=== PATIENT | male | born 1985 | race Caucasian/White ===

== ENCOUNTER → 2016-11-02 | Outpatient (CLI) | payer OTHER ==
--- NOTE | 2016-11-03 06:28 | CONS ---
DATE OF CONSULTATION: Primary care physician is Dr. Henley. Referring physicians are the physicians at [facility]. This 31-year-old served in [employer] between 2008 and 2009. He has history of depression and PTSD in addition to irritable bowel syndrome. He reported symptoms of loud snoring and waking up gasping for air on multiple occasions throughout the night and has been told to stop breathing by his . He reports he wakes up tired and fatigued during the day. He goes to bed between 11:00 p.m. and 2:00 a.m. and he wakes up at 6:00 to 7:00 a.m. in the morning. He averages around 6 hours of sleep. He is tired and sleepy during the day and he is being considered for obstructive sleep apnea. No sleepwalking. No sleeptalking. No waking up at agitated. No nightmares at this point. No active flashbacks. PAST MEDICAL HISTORY: Depression, PTSD, irritable bowel syndrome. PAST SURGICAL HISTORY: ( ) removal. ALLERGIES: TETRACYCLINE. Outpatient medication includes the Viberzi 100 mg twice a day, vitamin D. The patient was on Celexa 20 mg p.o. daily and Trazodone at bedtime. FAMILY HISTORY: His father obstructive sleep apnea. SOCIAL HISTORY: Nonsmoker. Drinks socially. No history of IV drugs. He is a . He is currently disabled. REVIEW OF SYSTEMS: Twelve-point review of systems was done and the positive findings were mentioned above in the history of present illness. BP is 127/64, pulse is 63, respirations 16, temperature is 97.9, saturation 95% on room air. Weight is 216, height is 5 foot 9. Neck size 16-1/2 inches. BMI is 31.8. GENERAL APPEARANCE: Calm, comfortable. HEENT: Crowding of posterior pharynx. There is no goiter, neck masses. Mallampati class III. LUNGS: Clear to auscultation. HEART: Sounds are regular rate and rhythm. Normal S1, S2. No S3. No S4. No murmurs. ABDOMEN: Soft, nontender. No organomegaly. EXTREMITIES: No edema. No cyanosis or clubbing. IMPRESSION: 1. Obstructive sleep apnea suspected clinically under investigation. 2. Depression. 3. Posttraumatic stress disorder. 4. Irritable bowel syndrome. PLAN: Proceed with a screening polysomnogram and further recommendations are to follow based on the results.
== END ==
LOC: SLEEP 16:07
PROVIDERS: ATTEND Internal Medicine Critical Care Medicine
DX: G47.33 Obstructive sleep apnea (adult) (pediatric) (principal); F32.9 Major depressive disorder, single episode, unspecified; K58.9 Irritable bowel syndrome, unspecified; F43.10 Post-traumatic stress disorder, unspecified; Z88.1 Allergy status to other antibiotic agents; Z79.899 Other long term (current) drug therapy
CPT/HCPCS: 99211

== ENCOUNTER 2017-10-19 15:24 | Emergency (ER) | payer MEDICARE, OTHER ==
[2017-10-19 15:31] VITALS: RESP 18; TEMP 99.8
[2017-10-19 16:13] LABS: Basophils % (A) 0 %; Eosinophils # (A) 0.1 k/uL (0-0.7); Eosinophils % (A) 3 %; HCT 51.1 % (39.0-53.0); HGB 17.3 gm/dL (13.0-17.5); Lymphocytes # (A) 0.9 k/uL (1.0-4.8); Lymphocytes % (A) 20 %; MCH 27.9 pg (25.0-35.0); MCHC 33.9 g/dL (31.0-37.0); MCV 82.4 fL (80.0-100.0); Mean Platelet Volume 7.1; Monocytes # (A) 0.3 k/uL (0-1.0); Monocytes % (A) 7 %; Neutrophils % (A) 68 %; Platelet Count 241 k/uL (150-450); RBC 6.19 m/uL (4.30-5.90); RDW 12.6 % (11.5-15.5); WBC 4.5 k/uL (3.8-10.6)
[2017-10-19 16:32] LABS: ALT 43 U/L (21-72); AST 31 U/L (17-59); Albumin 4.8 g/dL (3.5-5.0); Alkaline Phosphatase 109 U/L (38-126); Amylase 51 U/L (30-110); Anion Gap 16 mmol/L; Blood Urea Nitrogen 15 mg/dL (9-20); Calcium 9.8 mg/dL (8.4-10.2); Carbon Dioxide 24 mmol/L (22-30); Chloride 103 mmol/L (98-107); Glucose 86 mg/dL (74-99); Lipase 87 U/L (23-300); Potassium 4.2 mmol/L (3.5-5.1); Sodium 143 mmol/L (137-145); Total Bilirubin 0.9 mg/dL (0.2-1.3); Total Protein 7.4 g/dL (6.3-8.2)
[2017-10-19] MEDS ORDERED: SODIUM CHLORIDE 0.9% 1,000 ML IV STA ×2 (18:10)
[2017-10-19] MEDS ORDERED: ONDANSETRON ODT 4 MG TAB PO STA (18:10)
--- NOTE | 2017-10-19 18:12 | ED ---
General Adult HPI - General Chief complaint: Nausea/Vomiting/Diarrhea Stated complaint: Vomiting, unable to urinate Time Seen by Provider: 10/19/17 18:01 Source: patient, RN notes reviewed Mode of arrival: ambulatory Limitations: no limitations - History of Present Illness Initial comments: Patient 32-year-old male presented to the emergency room today with a chief complaint of diarrhea and abdominal pain over the last 2-3 days. Patient states that his had very loose stools approximately 6-7 episodes per day. He denies any sign of blood. Patient does admit to history of IBS but states this does not feel like that to him. He doesn't that he's had some pressure in the abdomen greater on the left side. Patient does admit that he's had decreased urination but he admits he has not been eating or drinking because any time he does feels nauseated. Patient denies any other questions or symptoms. Patient denies any recent fever, chills, shortness of breath, chest pain, back pain, numbness or tingling, dysuria or hematuria, constipation, headaches or visual changes, or any other complaints. - Related Data Previous Rx's Medication Instructions Recorded Dicyclomine [Bentyl] 20 mg PO QID #20 tablet 10/19/17 Ondansetron Odt [Zofran ODT] 4 mg PO Q8HR PRN #20 tab 10/19/17 Allergies Allergy/AdvReac Type Severity Reaction Status Date / Time tetracycline Allergy Rash/Hives Verified 10/19/17 15:31 Review of Systems ROS Statement: Those systems with pertinent positive or pertinent negative responses have been documented in the HPI. ROS Other: All systems not noted in ROS Statement are negative. Past Medical History Additional Past Medical History / Comment(s): alopecia, narrowed bladder neck, IBS History of Any Multi-Drug Resistant Organisms: None Reported Additional Past Surgical History / Comment(s): wisdom teeth Past Psychological History: PTSD Smoking Status: Never smoker Past Alcohol Use History: Occasional Past Drug Use History: None Reported General Exam - General Exam Comments Initial Comments: General: The patient is awake and alert, in no distress, and does not appear acutely ill. Eye: Pupils are equal, round and reactive to light, extra-ocular movements are intact. No nystagmus. There is normal conjunctiva bilaterally. No signs of icterus. Ears, nose, mouth and throat: There are moist mucous membranes and no oral lesions. Neck: The neck is supple, there is no tenderness or JVD. Cardiovascular: There is a regular rate and rhythm. No murmur, rub or gallop is appreciated. Respiratory: Lungs are clear to auscultation, respirations are non-labored, breath sounds are equal. No wheezes, stridor, rales, or rhonchi. Gastrointestinal: Abdomen soft on palpation. There is mild tenderness in the left lower quadrant. No rebound tenderness. No guarding. No CVA tenderness. Musculoskeletal: Normal ROM, no tenderness. Strength 5/5. Sensation intact. Pulses equal bilaterally 2+. Neurological: A&O x 3. CN II-XII intact, There are no obvious motor or sensory deficits. Coordination appears grossly intact. Speech is normal. Skin: Skin is warm and dry and no rashes or lesions are noted. Psychiatric: Cooperative, appropriate mood & affect, normal judgment. Limitations: no limitations Course Vital Signs 10/19/17 10/19/17 15:26 19:38 Temperature 99.8 F H Pulse Rate 77 80 Respiratory 18 18 Rate Blood Pressure 141/81 140/78 O2 Sat by Pulse 98 99 Oximetry Medical Decision Making - Medical Decision Making Patient reexamined at this time shows no signs of distress. Patient labs been reviewed are unremarkable. Patient given 2 L of fluids is feeling better here in emergency room. Patient has had diarrhea over the last 2 days. His abdomen soft on palpation. X-ray unremarkable. Patient will be treated with Bentyl for his symptoms. He is advised follow-up family physician over the next 2 days return if symptoms increase worsen. Patient states understanding and is in agreement with the plan. - Lab Data Result diagrams: 10/19/17 16:00 10/19/17 16:00 Lab Results 10/19/17 10/19/17 10/19/17 Range/Units 16:00 16:00 18:34 WBC 4.5 (3.8-10.6) k/uL RBC 6.19 H (4.30-5.90) m/uL Hgb 17.3 (13.0-17.5) gm/dL Hct 51.1 (39.0-53.0) % MCV 82.4 (80.0-100.0) fL MCH 27.9 (25.0-35.0) pg MCHC 33.9 (31.0-37.0) g/dL RDW 12.6 (11.5-15.5) % Plt Count 241 (150-450) k/uL Neutrophils % 68 % Lymphocytes % 20 % Monocytes % 7 % Eosinophils % 3 % Basophils % 0 % Neutrophils # 3.0 (1.3-7.7) k/uL Lymphocytes # 0.9 L (1.0-4.8) k/uL Monocytes # 0.3 (0-1.0) k/uL Eosinophils # 0.1 (0-0.7) k/uL Basophils # 0.0 (0-0.2) k/uL Sodium 143 (137-145) mmol/L Potassium 4.2 (3.5-5.1) mmol/L Chloride 103 (98-107) mmol/L Carbon Dioxide 24 (22-30) mmol/L Anion Gap 16 mmol/L BUN 15 (9-20) mg/dL Creatinine 0.80 (0.66-1.25) mg/dL Est GFR (CKD-EPI)AfAm >90 (>60 ml/min/1.73 sqM) Est GFR (CKD-EPI)NonAf >90 (>60 ml/min/1.73 sqM) Glucose 86 (74-99) mg/dL Calcium 9.8 (8.4-10.2) mg/dL Total Bilirubin 0.9 (0.2-1.3) mg/dL AST 31 (17-59) U/L ALT 43 (21-72) U/L Alkaline Phosphatase 109 (38-126) U/L Total Protein 7.4 (6.3-8.2) g/dL Albumin 4.8 (3.5-5.0) g/dL Amylase 51 (30-110) U/L Lipase 87 (23-300) U/L Urine Color Yellow Urine Appearance Clear (Clear) Urine pH 5.5 (5.0-8.0) Ur Specific [place] 1.025 (1.001-1.035) Urine Protein Trace H (Negative) Urine Glucose (UA) Negative (Negative) Urine Ketones 1+ H (Negative) Urine Blood Negative (Negative) Urine Nitrite Negative (Negative) Urine Bilirubin Negative (Negative) Urine Urobilinogen <2.0 (<2.0) mg/dL Ur Leukocyte Esterase Negative (Negative) Disposition Clinical Impression: Nausea, vomiting and diarrhea Disposition: HOME SELF-CARE Condition: Good Instructions: Acute Nausea and Vomiting (ED), Acute Diarrhea (ED) Additional Instructions: Please use medication as discussed. Please follow-up with family doctor in the next 2 days. Please return to emergency room if the symptoms increase or worsen or for any other concerns. Prescriptions: Dicyclomine [Bentyl] 20 mg PO QID #20 tablet Ondansetron Odt [Zofran ODT] 4 mg PO Q8HR PRN #20 tab PRN Reason: Nausea Is patient prescribed a controlled substance at d/c from ED?: No Referrals: Monroe Henley III, MD [Primary Care Provider] - 1-2 days Time of Disposition: 20:21
[2017-10-19 18:53] LABS: Appearance,Urine Clear (Clear); Bilirubin,Urine Negative (Negative); Blood,Urine Negative (Negative); Color,Urine Yellow; Glucose,Urine (UA) Negative (Negative); Ketones,Urine 1+ (Negative); Leukocyte Esterase,Urine Negative (Negative); Nitrite,Urine Negative (Negative); PH, Urine 5.5 (5.0-8.0); Protein,Urine Trace (Negative); Specific Gravity,Urine 1.025 (1.001-1.035); Urobilinogen,Urine <2.0 mg/dL (<2.0)
--- NOTE | 2017-10-19 19:33 | XR ---
EXAMINATION TYPE: XR KUB 2V DATE OF EXAM: 10/19/2017 COMPARISON: NONE HISTORY: Pain TECHNIQUE: 2 upright views FINDINGS: The bowel gas pattern is normal. No pneumatosis or pneumoperitoneum. The bones and joints a nd soft tissues visualized lung bases are unremarkable. IMPRESSION: No acute process.
[2017-10-19 19:40] VITALS: BP 140/78; PULSE 80
== END 2017-10-19 20:29 | disposition home or self-care (01) ==
LOC: EC 15:24
DX: R11.2 Nausea with vomiting, unspecified (principal); R19.7 Diarrhea, unspecified; R10.9 Unspecified abdominal pain; Z87.19 Personal history of other diseases of the digestive system; Z88.1 Allergy status to other antibiotic agents
CPT/HCPCS: 36415; 51798; 74018; 80053; 81003; 82150; 83690; 85025; 96360; 96361; 99284

== ENCOUNTER 2018-09-24 14:37 | Emergency (ER) | payer MEDICARE, OTHER ==
[2018-09-24 14:47] VITALS: BP 137/89; PULSE 73; RESP 18; TEMP 98.3
[2018-09-24] MEDS ORDERED: PROPARACAINE 0.5% OPHTH DROPS 15 ML BTL LEFT EYE STA (14:50)
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
== END 2018-09-24 15:17 | disposition home or self-care (01) ==
LOC: EC 14:37
DX: S05.02XA Injury of conjunctiva and corneal abrasion without foreign body, left eye, initial encounter (principal); Z88.1 Allergy status to other antibiotic agents
CPT/HCPCS: 99283

== ENCOUNTER 2020-08-29 15:16 | Emergency (ER) | payer MEDICARE, OTHER ==
[2020-08-29 15:20] VITALS: BP 140/97; PULSE 68; RESP 20; TEMP 97.9
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
[2020-08-29] MEDS ORDERED: KETOROLAC 15 MG/ML 1 ML VIAL IM STA (16:10)
== END 2020-08-29 16:44 | disposition home or self-care (01) ==
LOC: EC 15:16
DX: S43.402A Unspecified sprain of left shoulder joint, initial encounter (principal); E78.5 Hyperlipidemia, unspecified; F12.90 Cannabis use, unspecified, uncomplicated; V89.2XXA Person injured in unspecified motor-vehicle accident, traffic, initial encounter
CPT/HCPCS: 72050; 73030; 99283; 96372; J1885

== ENCOUNTER → 2022-02-26 | Outpatient (CLI) | payer OTHER ==
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
--- NOTE | 2022-02-26 18:39 | MR ---
EXAMINATION TYPE: MR arthrogram left shoulder DATE OF EXAM: 02/26/2022 COMPARISON: Arthrogram injection same day HISTORY: 36-year-old male S43.432A S43.43A, labral repair 6 months ago after injury last year. Persis tent anterior pain. Technique: Multiplanar, multisequence images of left shoulder are obtained after intra-articular admi nistration of a gadolinium mixture. Please refer to arthrogram injection report of the same day for f urther details. FINDINGS: There is adequate distention of the glenohumeral joint with injected contrast. There is persistent fo cus of susceptibility artifact within the anterior mid glenohumeral joint. Unclear if this represents a tiny fragment of metal. It is not located nondependent in the joint to clearly indicate an inadver tently injected air bubble. There is abnormal increased T2 signal within the substance of the superior labrum extending from the biceps anchor back to the superior aspect of the posterior labrum. No paralabral cysts are seen. There are 2 anchors along the inferior glenoid. The long head biceps tendon is intact. Intra-articular contrast extends along the bicipital groove. Overall glenohumeral joint articular cartilage is maintained. There is moderate degenerative change at the AC joint with capsular hypertrophy and small joint effus ion. Mild edema within the subchondral aspect of the distal clavicle and a tiny subchondral cyst as w ell. Hill-Sachs deformity or os acromiale. No suspicious marrow replacement. There is some notching along the posterior-superior margin of the humeral head that could reflect pos tsurgical change. Clinically correlate. Some of the injected contrast extends into the shallow osseou s defect. Supraspinatus, infraspinatus, and subscapularis tendons are intact. No subacromial/subdeltoid bursal effusion. No atrophy of the rotator cuff musculature. IMPRESSION: 1. Findings suggest underlying SLAP tear extending back from the biceps anchor to the superior aspect of the posterior labrum. 2. Two anchors within the inferior glenoid relating to prior labral repair. 3. A persistent focus of susceptibility artifact within the anterior mid glenohumeral joint. Unclear if this represents a tiny fragment of metal. The location is not typical for an inadvertently injecte d air bubble. Clinically correlate. 4. 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 An AC joint effusion and danika e edema along the subchondral aspect of the distal clavicle could reflect an acute exacerbation of un derlying OA.
== END | disposition home or self-care (01) ==
LOC: RADFLMAIN 12:46
PROVIDERS: ATTEND Orthopaedic Surgery
DX: M19.012 Primary osteoarthritis, left shoulder (principal)
CPT/HCPCS: 23350; 73040; 73222; J2001; Q9967

== ENCOUNTER 2023-07-10 14:45 | Inpatient (IN) | payer MEDICARE, OTHER ==
[2023-07-10] MEDS ORDERED: SODIUM CHLORIDE 0.9% 500 ML 500 ML IV STA (15:06)
[2023-07-10] MEDS ORDERED: ONDANSETRON 4 MG/2 ML VIAL IVP STA (15:06)
[2023-07-10] MEDS ORDERED: HYDROmorphone 0.5 MG/0.5 ML SYRINGE IVP STA (15:07)
--- NOTE | 2023-07-10 15:11 | ED ---
General Adult HPI - General Source: RN notes reviewed, old records reviewed Mode of arrival: ambulatory Limitations: no limitations - History of Present Illness -: week(s) Radiation: non-radiation Severity scale (1-10): 4 Quality: aching Consistency: intermittent Improves with: none Worsens with: none Associated Symptoms: denies other symptoms Treatments Prior to Arrival: none <Joe Natarajan - Last Filed: 07/10/23 16:47> - General Source: patient, RN notes reviewed, old records reviewed Mode of arrival: ambulatory Limitations: no limitations <Desmond Waterman - Last Filed: 07/12/23 20:20> - General Chief complaint: Abdominal Pain Stated complaint: abd pain diarrhea Time Seen by Provider: 07/10/23 14:56 - History of Present Illness Initial comments: This is a 38-year-old male DF for persistent nausea vomiting and diarrhea. Patient has had prior evaluations presented today for his persistent symptoms (Joe Natarajan) 38-year-old male presenting for evaluation of abdominal pain nausea vomiting diarrhea. Patient has had workup at outside hospital including CT imaging. He states that he's been referred to gastroenterology but has yet to make an appointment. He reports abdominal pain which is predominantly epigastric and right upper quadrant. He's never had any abdominal surgeries in the past. He's had both vomiting as well as diarrhea. (Desmond Waterman) - Related Data Home Medications Medication Instructions Recorded Confirmed Escitalopram Oxalate [Lexapro] 10 mg PO HS 11/26/22 07/10/23 Allergies Allergy/AdvReac Type Severity Reaction Status Date / Time tetracycline Allergy Rash/Hives Verified 07/10/23 19:15 Review of Systems ROS Other: All systems not noted in ROS Statement are negative. <Joe Natarajan - Last Filed: 07/10/23 16:47> ROS Other: All systems not noted in ROS Statement are negative. <Desmond Waterman - Last Filed: 07/12/23 20:20> ROS Statement: Those systems with pertinent positive or pertinent negative responses have been documented in the HPI. Past Medical History Past Medical History: Hyperlipidemia Additional Past Medical History / Comment(s): alopecia, narrowed bladder neck, IBS History of Any Multi-Drug Resistant Organisms: None Reported Past Surgical History: Orthopedic Surgery Additional Past Surgical History / Comment(s): left shoulder surgery Past Anesthesia/Blood Transfusion Reactions: No Reported Reaction Past Psychological History: PTSD Smoking Status: Never smoker Past Alcohol Use History: None Reported Past Drug Use History: Marijuana <Desmond Waterman Nani - Last Filed: 07/12/23 20:20> General Exam General appearance: alert, in no apparent distress Head exam: Present: atraumatic, normocephalic, normal inspection Eye exam: Present: normal appearance, PERRL, EOMI. Absent: scleral icterus, conjunctival injection, periorbital swelling ENT exam: Present: normal exam, mucous membranes moist Neck exam: Present: normal inspection. Absent: tenderness, meningismus, lymphadenopathy Respiratory exam: Present: normal lung sounds bilaterally. Absent: respiratory distress, wheezes, rales, rhonchi, stridor Cardiovascular Exam: Present: regular rate, normal rhythm, normal heart sounds. Absent: systolic murmur, diastolic murmur, rubs, gallop, clicks GI/Abdominal exam: Present: soft, normal bowel sounds. Absent: distended, tenderness, guarding, rebound, rigid Extremities exam: Present: normal inspection, full ROM, normal capillary refill. Absent: tenderness, pedal edema, joint swelling, calf tenderness Back exam: Present: normal inspection Neurological exam: Present: alert, oriented X3, CN II-XII intact Psychiatric exam: Present: normal affect, normal mood Skin exam: Present: warm, dry, intact, normal color. Absent: rash <Rosa IselaJoe Baker - Last Filed: 07/10/23 16:47> Limitations: no limitations General appearance: alert, in no apparent distress Head exam: Present: atraumatic, normocephalic Eye exam: Present: normal appearance, PERRL Neck exam: Present: normal inspection. Absent: tenderness, meningismus Respiratory exam: Present: normal lung sounds bilaterally. Absent: respiratory distress, wheezes Cardiovascular Exam: Present: regular rate, normal rhythm GI/Abdominal exam: Present: soft, distended, tenderness (Mild epigastric). Absent: guarding, rebound Extremities exam: Present: normal inspection Neurological exam: Present: alert, oriented X3, CN II-XII intact. Absent: motor sensory deficit Psychiatric exam: Present: normal affect, normal mood Skin exam: Present: warm, dry, intact. Absent: cyanosis, diaphoretic <Desmond Waterman N - Last Filed: 07/12/23 20:20> Course <Joe Natarajan - Last Filed: 07/10/23 16:47> Vital Signs 07/10/23 07/10/23 07/10/23 14:47 15:30 20:11 Temperature 98 F 98.2 F Pulse Rate 75 54 L Respiratory 16 18 Rate Blood Pressure 146/97 125/78 107/64 O2 Sat by Pulse 96 98 97 Oximetry - Reevaluation(s) Reevaluation #1: 07/10/23 15:55 Medical records reviewed (Joe Natarajan) Reevaluation #2: 07/10/23 16:47 Patient symptoms improving (Joe Natarajan) Reevaluation #4: 07/10/23 16:47 Was pt. sent in by a medical professional or institution (, PA, ICT TEACHER, urgent care, hospital, or penitentiary...) When possible be specific @ -no Did you speak to anyone other than the patient for history (EMS, parent, family, police, friend...)? What history was obtained from this source @ -no Did you review nursing and triage notes (agree or disagree)? Why? @ -agree Are old charts reviewed (outside hosp., previous admission, EMS record, old EKG, old radiological studies, urgent care reports/EKG's, penitentiary records)? Report findings @ -yes Differential Diagnosis (chest pain, altered mental status, abdominal pain women, abdominal pain men, vaginal bleeding, weakness, fever, dyspnea, syncope, headache, dizziness, GI bleed, back pain, seizure, CVA, palpatations, mental health, musculoskeletal)? @ -prior EKG interpreted by me (3pts min.). @ -yes X-rays interpreted by me (1pt min.). @ -yes CT interpreted by me (1pt min.). @ -no U/S interpreted by me (1pt. min.). @ -no What testing was considered but not performed or refused? (CT, X-rays, U/S, la bs)? Why? @ -none What meds were considered but not given or refused? Why? @ -none Did you discuss the management of the patient with other professionals (professionals i.e. , PA, ICT TEACHER, lab, RT, psych nurse, social media content specialist, audio visual secretary, teacher, transportation security officer, case folder)? Give summary @ -no Was smoking cessation discussed for >3mins.? @ -no Were there social determinants of health that impacted care today? How? (Homelessness, low income, unemployed, alcoholism, drug addiction, transportation, low edu. Level, literacy, decrease access to med. care, shelter, rehab)? @ -none Was there de-escalation of care discussed even if they declined (Discuss DNR or withdrawal of care, Hospice)? DNR status @ -no What co-morbidities impacted this encounter? (DM, HTN, Smoking, COPD, CAD, Cancer, CVA, ARF, Chemo, Hep., AIDS, mental health diagnosis, sleep apnea, morbid obesity)? @ -none Was patient admitted / discharged? Hospital course, mention meds given and route, prescriptions, significant lab abnormalities, going to OR and other pertinent info. @ - Was critical care preformed (if so, how long)? @ -no Undiagnosed new problem with uncertain prognosis? @ -no Drug Therapy requiring intensive monitoring for toxicity (Heparin, Nitro, Insulin, Cardizem)? @ -no Were any procedures done? @ -no Diagnosis/symptom? @ - Acute, or Chronic, or Acute on Chronic? @ -Acute Uncomplicated (without systemic symptoms) or Complicated (systemic symptoms)? @ -Complicated Side effects of treatment? @ -no Exacerbation, Progression, or Severe Exacerbation? @ -exacerbation Poses a threat to life or bodily function? How? (Chest pain, [place], [place], pneumonia, PE, COPD, DKA, ARF, appy, cholecystitis, CVA, Diverticulitis, Homicidal, Suicidal, threat to staff... and all critical care pts) @ -yes (Joe Natarajan) Reevaluation #5: 07/10/23 16:47 Differential Abdominal Pain Men: Appendicitis, cholecystitis, diverticulosis, ischemic bowel, pancreatitis, hepatitis, UTI, gastroenteritis, AAA, incarcerated hernia, bowel obstruction, constipation, inflammatory bowel, hepatitis, peptic ulcer disease, splenic infarction, perforated viscus, testicular torsion, this is not meant to be an all-inclusive list (Joe Natarajan) Medical Decision Making - Lab Data Result diagrams: 07/10/23 15:19 07/10/23 15:19 <Joe Natarajan B - Last Filed: 07/10/23 16:47> - Lab Data Result diagrams: 07/12/23 05:51 07/12/23 05:51 <Desmond Waterman - Last Filed: 07/12/23 20:20> - Medical Decision Making Was pt. sent in by a medical professional or institution (, PA, ICT TEACHER, urgent care, hospital, or penitentiary...) When possible be specific @ -No Did you speak to anyone other than the patient for history (EMS, parent, family, police, friend...)? What history was obtained from this source @ -No Did you review nursing and triage notes (agree or disagree)? Why? @ -I reviewed and agree with nursing and triage notes Were old charts reviewed (outside hosp., previous admission, EMS record, old EKG , old radiological studies, urgent care reports/EKG's, penitentiary records)? Report findings @ -No old charts were reviewed Differential Diagnosis (chest pain, altered mental status, abdominal pain women, abdominal pain men, vaginal bleeding, weakness, fever, dyspnea, syncope, headache, dizziness, GI bleed, back pain, seizure, CVA, palpatations, mental health, musculoskeletal)? @ Differential Abdominal Pain Men: Appendicitis, cholecystitis, diverticulosis, ischemic bowel, pancreatitis, hepatitis, UTI, gastroenteritis, AAA, incarcerated hernia, bowel obstruction, constipation, inflammatory bowel, hepatitis, peptic ulcer disease, splenic infarction, perforated viscus, testicular torsion, this is not meant to be an all-inclusive list EKG interpreted by me (3pts min.). @ -As above X-rays interpreted by me (1pt min.). @ -None done CT interpreted by me (1pt min.). @ -None done U/S interpreted by me (1pt. min.). @ -None done What testing was considered but not performed or refused? (CT, X-rays, U/S, labs)? Why? @ -None What meds were considered but not given or refused? Why? @ -None Did you discuss the management of the patient with other professionals (professionals i.e. , PA, ICT TEACHER, lab, RT, psych nurse, social media content specialist, audio visual secretary, teacher, transportation security officer, case folder)? Give summary @ -No Was smoking cessation discussed for >3mins.? @ -No Was critical care preformed (if so, how long)? @ -No Were there social determinants of health that impacted care today? How? (H omelessness, low income, unemployed, alcoholism, drug addiction, transportation, low edu. Level, literacy, decrease access to med. care, shelter, rehab)? @ -No Was there de-escalation of care discussed even if they declined (Discuss DNR or withdrawal of care, Hospice)? DNR status @ -No What co-morbidities impacted this encounter? (DM, HTN, Smoking, COPD, CAD, Cancer, CVA, ARF, Chemo, Hep., AIDS, mental health diagnosis, sleep apnea, morbid obesity)? @ -None Was patient admitted / discharged? Hospital course, mention meds given and route, prescriptions, significant lab abnormalities, going to OR and other pertinent info. @ -Patient care signed out to Dr. Natarajan, pending laboratory testing and imaging [facility] - Lab Data Lab Results 07/10/23 07/10/23 07/10/23 Range/Units 15:19 15:19 15:19 WBC 11.7 H (3.8-10.6) k/uL RBC 5.40 (4.30-5.90) m/uL Hgb 15.5 (13.0-17.5) gm/dL Hct 46.5 (39.0-53.0) % MCV 86.0 (80.0-100.0) fL MCH 28.7 (25.0-35.0) pg MCHC 33.4 (31.0-37.0) g/dL RDW 12.5 (11.5-15.5) % Plt Count 207 (150-450) k/uL MPV 7.5 Neutrophils % 79 % Lymphocytes % 10 % Monocytes % 3 % Eosinophils % 7 % Basophils % 0 % Neutrophils # 9.3 H (1.3-7.7) k/uL Lymphocytes # 1.2 (1.0-4.8) k/uL Monocytes # 0.4 (0-1.0) k/uL Eosinophils # 0.8 H (0-0.7) k/uL Basophils # 0.0 (0-0.2) k/uL PT 12.7 H (10.0-12.5) sec INR 1.2 H (<1.2) APTT 22.8 (22.0-30.0) sec Sodium (137-145) mmol/L Potassium (3.5-5.1) mmol/L Chloride (98-107) mmol/L Carbon Dioxide (22-30) mmol/L Anion Gap mmol/L BUN (9-20) mg/dL Creatinine (0.66-1.25) mg/dL Est GFR (CKD-EPI)AfAm (>60 ml/min/1.73 sqM) Est GFR (CKD-EPI)NonAf (>60 ml/min/1.73 sqM) Glucose (74-99) mg/dL Plasma Lactic Acid Ramakrishna (0.7-2.0) mmol/L Calcium (8.4-10.2) mg/dL Total Bilirubin (0.2-1.3) mg/dL AST (17-59) U/L ALT (4-49) U/L Alkaline Phosphatase (38-126) U/L Total Protein (6.3-8.2) g/dL Albumin (3.5-5.0) g/dL Amylase (30-110) U/L Lipase (23-300) U/L Urine Color Light Yellow Urine Appearance Clear (Clear) Urine pH 5.5 (5.0-8.0) Ur Specific Marion 1.011 (1.001-1.035) Urine Protein Negative (Negative) Urine Glucose (UA) Negative (Negative) Urine Ketones 1+ H (Negative) Urine Blood Negative (Negative) Urine Nitrite Negative (Negative) Urine Bilirubin Negative (Negative) Urine Urobilinogen <2.0 (<2.0) mg/dL Ur Leukocyte Esterase Negative (Negative) 07/10/23 07/10/23 Range/Units 15:19 15:19 WBC (3.8-10.6) k/uL RBC (4.30-5.90) m/uL Hgb (13.0-17.5) gm/dL Hct (39.0-53.0) % MCV (80.0-100.0) fL MCH (25.0-35.0) pg MCHC (31.0-37.0) g/dL RDW (11.5-15.5) % Plt Count (150-450) k/uL MPV Neutrophils % % Lymphocytes % % Monocytes % % Eosinophils % % Basophils % % Neutrophils # (1.3-7.7) k/uL Lymphocytes # (1.0-4.8) k/uL Monocytes # (0-1.0) k/uL Eosinophils # (0-0.7) k/uL Basophils # (0-0.2) k/uL PT (10.0-12.5) sec INR (<1.2) APTT (22.0-30.0) sec Sodium 139 (137-145) mmol/L Potassium 4.2 (3.5-5.1) mmol/L Chloride 104 (98-107) mmol/L Carbon Dioxide 29 (22-30) mmol/L Anion Gap 6 mmol/L BUN 10 (9-20) mg/dL Creatinine 0.93 (0.66-1.25) mg/dL Est GFR (CKD-EPI)AfAm >90 (>60 ml/min/1.73 sqM) Est GFR (CKD-EPI)NonAf >90 (>60 ml/min/1.73 sqM) Glucose 99 (74-99) mg/dL Plasma Lactic Acid Ramakrishna 0.8 (0.7-2.0) mmol/L Calcium 9.3 (8.4-10.2) mg/dL Total Bilirubin 0.8 (0.2-1.3) mg/dL AST 47 (17-59) U/L ALT 66 H (4-49) U/L Alkaline Phosphatase 89 (38-126) U/L Total Protein 6.0 L (6.3-8.2) g/dL Albumin 3.8 (3.5-5.0) g/dL Amylase 170 H (30-110) U/L Lipase 2840 H (23-300) U/L Urine Color Urine Appearance (Clear) Urine pH (5.0-8.0) Ur Specific Marion (1.001-1.035) Urine Protein (Negative) Urine Glucose (UA) (Negative) Urine Ketones (Negative) Urine Blood (Negative) Urine Nitrite (Negative) Urine Bilirubin (Negative) Urine Urobilinogen (<2.0) mg/dL Ur Leukocyte Esterase (Negative) Disposition <Joe Natarajan - Last Filed: 07/10/23 16:47> Is patient prescribed a controlled substance at d/c from ED?: No <Desmond Waterman - Last Filed: 07/12/23 20:20> Clinical Impression: Pancreatitis Disposition: ADMITTED IP TO THIS HOSP Condition: Stable
[2023-07-10 15:46] LABS: Basophils % (A) 0 %; Eosinophils # (A) 0.8 k/uL (0-0.7); Eosinophils % (A) 7 %; HCT 46.5 % (39.0-53.0); HGB 15.5 gm/dL (13.0-17.5); Lymphocytes # (A) 1.2 k/uL (1.0-4.8); Lymphocytes % (A) 10 %; MCH 28.7 pg (25.0-35.0); MCHC 33.4 g/dL (31.0-37.0); Mean Platelet Volume 7.5; Monocytes # (A) 0.4 k/uL (0-1.0); Monocytes % (A) 3 %; Neutrophils # (A) 9.3 k/uL (1.3-7.7); Neutrophils % (A) 79 %; Platelet Count 207 k/uL (150-450); RDW 12.5 % (11.5-15.5); WBC 11.7 k/uL (3.8-10.6)
[2023-07-10 15:57] LABS: ALT 66 U/L (4-49); AST 47 U/L (17-59); African American GFR (CKD) >90 (>60 ml/min/1.73 sqM); Albumin 3.8 g/dL (3.5-5.0); Alkaline Phosphatase 89 U/L (38-126); Amylase 170 U/L (30-110); Anion Gap 6 mmol/L; Blood Urea Nitrogen 10 mg/dL (9-20); Calcium 9.3 mg/dL (8.4-10.2); Carbon Dioxide 29 mmol/L (22-30); Chloride 104 mmol/L (98-107); Glucose 99 mg/dL (74-99); Non-African American GFR(CKD) >90 (>60 ml/min/1.73 sqM); Potassium 4.2 mmol/L (3.5-5.1); Sodium 139 mmol/L (137-145); Total Bilirubin 0.8 mg/dL (0.2-1.3)
[2023-07-10 15:59] LABS: INR 1.2 (<1.2); Partial Thromboplastin Time 22.8 sec (22.0-30.0); Prothrombin Time 12.7 sec (10.0-12.5)
[2023-07-10 16:12] LABS: Lipase 2840 U/L (23-300)
[2023-07-10 17:16] LABS: Appearance,Urine Clear (Clear); Bilirubin,Urine Negative (Negative); Blood,Urine Negative (Negative); Color,Urine Light Yellow; Glucose,Urine (UA) Negative (Negative); Ketones,Urine 1+ (Negative); Leukocyte Esterase,Urine Negative (Negative); Nitrite,Urine Negative (Negative); PH, Urine 5.5 (5.0-8.0); Protein,Urine Negative (Negative); Specific Gravity,Urine 1.011 (1.001-1.035); Urobilinogen,Urine <2.0 mg/dL (<2.0)
[2023-07-10] MEDS ORDERED: HYDROmorphone 1 MG/ML 1 ML SYRINGE IVP STA (18:22)
[2023-07-10] MEDS ORDERED: SODIUM CHLORIDE 0.9% 1,000 ML IV STA (18:22)
[2023-07-10] MEDS ORDERED: NALOXONE 0.4 MG/ML 1 ML VIAL IV PRN (18:32)
[2023-07-10] MEDS: PANTOPRAZOLE 40 MG/10 ML VIAL IV SCH (18:54)
[2023-07-10] MEDS: SODIUM CHLORIDE 0.9% 1,000 ML IV SCH (18:54)
[2023-07-10] MEDS: ESCITALOPRAM 10 MG TAB PO SCH (21:39)
--- NOTE | 2023-07-10 21:58 | US ---
EXAMINATION TYPE: US gallbladder DATE OF EXAM: 07/10/2023 COMPARISON: NONE CLINICAL INDICATION: Male, 38 years old with history of pain; Pancreatitis per patient. No prior abd omen surgeries. TECHNIQUE: Multiple sonographic images of the right upper quadrant are obtained. FINDINGS: EXAM MEASUREMENTS: Liver Length: 14.8 cm Gallbladder Wall: 0.1 cm CBD: 0.4 cm Right Kidney: 9.9 x 4.1 x 3.9 cm Pancreas: Obscured by bowel gas Liver: wnl Gallbladder: No stones or wall thickening seen Evidence for sonographic Crews's sign: neg CBD: wnl Right Kidney: No hydronephrosis or masses seen IMPRESSION: 1. Pancreas obscured by bowel gas. If of concern, consider CT. 2. No sonographic abnormality of the gallbladder or biliary tree.
[2023-07-11] MEDS: HYDROmorphone 1 MG/ML 1 ML SYRINGE IVP PRN ×4 (00:26→22:42)
[2023-07-11] MEDS: ONDANSETRON 4 MG/2 ML VIAL IVP PRN ×4 (00:26→21:28)
[2023-07-11] MEDS: SODIUM CHLORIDE 0.9% 1,000 ML IV SCH ×4 (03:58→20:57)
[2023-07-11 08:30] VITALS: RESP 16
[2023-07-11] MEDS: PANTOPRAZOLE 40 MG/10 ML VIAL IV SCH (09:38)
--- NOTE | 2023-07-11 12:49 | P.GSCN ---
History of Present Illness Consult date: 07/11/23 History of present illness: CHIEF COMPLAINT: Abdominal pain HISTORY OF PRESENT ILLNESS: This is a 38-year-old male who presented with epigastric abdominal pain radiates into the right upper quadrant. Patient reports that he is also been having diarrhea and vomiting. Reports occasional vomiting after eating. He reports he has not been feeling well for about 25 days. He does have a prior history of heavy alcohol use but now reports that he does not drink alcohol regularly. Last alcohol beverage was at noon. Denies a prior history of pancreatitis. He reports his last colonoscopy was in 2007 with polyps. He's also has a history of IBS. Never had EGD. Gallbladder ultrasound showed no evidence of gallbladder stones. Lipase was elevated on admission. Patient being treated for acute pancreatitis. Patient denies any recent traveling. Patient denies any new medication. PAST MEDICAL HISTORY: Hyperlipidemia, IBS PAST SURGICAL HISTORY: Left shoulder surgery MEDICATIONS: See below ALLERGIES: See below SOCIAL HISTORY: No illicit drug use. REVIEW OF SYSTEMS: CONSTITUTIONAL: Denies fever or chills. HEENT: Denies blurred vision, vision changes, or eye pain. Denies hemoptysis CARDIOVASCULAR: Denies chest pain or pressure. RESPIRATORY: No shortness of breath. GASTROINTESTINAL: See HPI for pertinent findings HEMATOLOGIC: Denies bleeding disorders. GENITOURINARY: Denies any blood in urine or increased urinary frequency. SKIN: Denies pruitis. Denies rash. PHYSICAL EXAM: VITAL SIGNS: Reviewed GENERAL: Well-developed in no acute distress. ABDOMEN: Soft. Nondistended. Tenderness to palpation epigastric and right upper quadrant area NEUROLOGIC: Alert and oriented. Cranial nerves II through XII grossly intact. LABORATORY DATA: WBC 11.7 Hgb 15.5 platelets 207 INR 1.2 Sodium 139 potassium 4.2 creatinine 0.93 Total bilirubin 0.8 AST 47 ALT 66 alk phos 89 lipase 2840 Labs for today pending IMAGING: Gallbladder ultrasound pancreas obscured by bowel gas. No abnormality of the gallbladder or biliary trees. No evidence of gallstones. ASSESSMENT: 1. Acute pancreatitis. No evidence of gallstones on ultrasound 2. Prior history of heavy alcohol use PLAN: -Continue to monitor -Keep patient nothing by mouth -Continue IV fluids -Continue pain management -Repeat labs in a.m. Physician Telecommunication Systems Designer note has been reviewed by physician. Signing provider agrees with the documented findings, assessment, and plan of care. Past Medical History Past Medical History: Hyperlipidemia, Sleep Apnea/CPAP/BIPAP Additional Past Medical History / Comment(s): alopecia, narrowed bladder neck, IBS, carpal tunnel both wrists History of Any Multi-Drug Resistant Organisms: None Reported Past Surgical History: Orthopedic Surgery Additional Past Surgical History / Comment(s): left shoulder surgery, Past Anesthesia/Blood Transfusion Reactions: No Reported Reaction Past Psychological History: PTSD Smoking Status: Never smoker Past Alcohol Use History: None Reported Past Drug Use History: Marijuana Medications and Allergies Home Medications Medication Instructions Recorded Confirmed Type Escitalopram Oxalate [Lexapro] 10 mg PO HS 11/26/22 07/10/23 History Allergies Allergy/AdvReac Type Severity Reaction Status Date / Time tetracycline Allergy Rash/Hives Verified 07/10/23 19:15 Surgical - Exam Vital Signs Temp Pulse Resp BP Pulse Ox 98 F 75 16 146/97 96 07/10/23 14:47 07/10/23 14:47 07/10/23 14:47 07/10/23 14:47 07/10/23 14:47 Results - Labs 07/10/23 15:19 07/10/23 15:19 Abnormal Lab Results - Last 24 Hours (Table) 07/10/23 07/10/23 07/10/23 Range/Units 15:19 15:19 15:19 WBC 11.7 H (3.8-10.6) k/uL Neutrophils # 9.3 H (1.3-7.7) k/uL Eosinophils # 0.8 H (0-0.7) k/uL PT 12.7 H (10.0-12.5) sec INR 1.2 H (<1.2) ALT (4-49) U/L Total Protein (6.3-8.2) g/dL Amylase (30-110) U/L Lipase (23-300) U/L Urine Ketones 1+ H (Negative) 07/10/23 Range/Units 15:19 WBC (3.8-10.6) k/uL Neutrophils # (1.3-7.7) k/uL Eosinophils # (0-0.7) k/uL PT (10.0-12.5) sec INR (<1.2) ALT 66 H (4-49) U/L Total Protein 6.0 L (6.3-8.2) g/dL Amylase 170 H (30-110) U/L Lipase 2840 H (23-300) U/L Urine Ketones (Negative) Diabetes panel 07/10/23 Range/Units 15:19 Sodium 139 (137-145) mmol/L Potassium 4.2 (3.5-5.1) mmol/L Chloride 104 (98-107) mmol/L Carbon Dioxide 29 (22-30) mmol/L BUN 10 (9-20) mg/dL Creatinine 0.93 (0.66-1.25) mg/dL Glucose 99 (74-99) mg/dL Calcium 9.3 (8.4-10.2) mg/dL AST 47 (17-59) U/L ALT 66 H (4-49) U/L Alkaline Phosphatase 89 (38-126) U/L Total Protein 6.0 L (6.3-8.2) g/dL Albumin 3.8 (3.5-5.0) g/dL Calcium panel 07/10/23 Range/Units 15:19 Calcium 9.3 (8.4-10.2) mg/dL Albumin 3.8 (3.5-5.0) g/dL Pituitary panel 07/10/23 Range/Units 15:19 Sodium 139 (137-145) mmol/L Potassium 4.2 (3.5-5.1) mmol/L Chloride 104 (98-107) mmol/L Carbon Dioxide 29 (22-30) mmol/L BUN 10 (9-20) mg/dL Creatinine 0.93 (0.66-1.25) mg/dL Glucose 99 (74-99) mg/dL Calcium 9.3 (8.4-10.2) mg/dL Adrenal panel 07/10/23 Range/Units 15:19 Sodium 139 (137-145) mmol/L Potassium 4.2 (3.5-5.1) mmol/L Chloride 104 (98-107) mmol/L Carbon Dioxide 29 (22-30) mmol/L BUN 10 (9-20) mg/dL Creatinine 0.93 (0.66-1.25) mg/dL Glucose 99 (74-99) mg/dL Calcium 9.3 (8.4-10.2) mg/dL Total Bilirubin 0.8 (0.2-1.3) mg/dL AST 47 (17-59) U/L ALT 66 H (4-49) U/L Alkaline Phosphatase 89 (38-126) U/L Total Protein 6.0 L (6.3-8.2) g/dL Albumin 3.8 (3.5-5.0) g/dL
--- NOTE | 2023-07-11 13:23 | P.HPIM ---
History of Present Illness H&P Date: 07/11/23 Chief Complaint: Abdominal pain This is a 38-year-old gentleman with past medical history significant for IBS, heavy alcohol use 12-15 years ago, hyperlipidemia, obstructive sleep apnea- uses CPAP, marijuana use, and multiple other medical issues presented to the ER with worsening abdominal pain. He reports he initially started not feeling well before [place], developed change in stools, now more liquidy, abdominal pain with eating. Over the last 2 weeks abdominal pain worsened. Reports 3-4 times nausea and vomiting. Denies prior history of pancreatitis. He reports he does not consume alcohol on a regular basis. He tended have a glass of wine on . 2007 had a colonoscopy reporting polyps. Last week he went to [facility], CT and blood work obtained and reports he received a diagnosis of gastritis. Gallbladder ultrasound reported pancreas obscured by bowel gas, no sonographic abnormality of the gallbladder biliary tree, no stones or wall thickening. Lipase elevated 2840 on admission. Afebrile, WBC 11.7, hemoglobin 15.5, platelets 207, INR 1.2, electrolytes and renal function within normal limits, T bili 0.8 AST 47 ,ALT 66 ,alk phos 89. UA negative. Review of Systems ROS Statement: Those systems with pertinent positive or pertinent negative responses have been documented in the HPI. ROS Other: All systems not noted in ROS Statement are negative. Past Medical History Past Medical History: Hyperlipidemia, Sleep Apnea/CPAP/BIPAP Additional Past Medical History / Comment(s): alopecia, narrowed bladder neck, IBS, carpal tunnel both wrists History of Any Multi-Drug Resistant Organisms: None Reported Past Surgical History: Orthopedic Surgery Additional Past Surgical History / Comment(s): left shoulder surgery, Past Anesthesia/Blood Transfusion Reactions: No Reported Reaction Past Psychological History: PTSD Smoking Status: Never smoker Past Alcohol Use History: None Reported Past Drug Use History: Marijuana Medications and Allergies Home Medications Medication Instructions Recorded Confirmed Type Escitalopram Oxalate [Lexapro] 10 mg PO HS 11/26/22 07/10/23 History Allergies Allergy/AdvReac Type Severity Reaction Status Date / Time tetracycline Allergy Rash/Hives Verified 07/10/23 19:15 Physical Exam Vitals: Vital Signs Temp Pulse Pulse Resp BP BP Pulse Ox 07/11/23 07:00 98.0 F 82 16 122/68 99 07/11/23 00:36 97.6 F 51 L 15 124/72 97 07/10/23 20:35 97.8 F 54 L 16 117/69 99 07/10/23 20:11 98.2 F 54 L 18 107/64 97 07/10/23 15:30 125/78 98 07/10/23 14:47 98 F 75 16 146/97 96 Intake and Output 07/10/23 07/11/23 07/11/23 22:59 06:59 14:59 Other: # Voids 1 1 Weight 86.183 kg PHYSICAL EXAM: VITAL SIGNS: [As above GENERAL: alert and oriented 3, sitting up in bed, no acute distress] HEENT: Normocephalic, Conjunctivae normal. eyes normal. NECK: Supple, No JVD. No thyroid enlargement. No LNs CARDIOVASCULAR: S1, S2 regular.. No murmur RESPIRATION: Unlabored, equal air entry Breath sounds diminished in the bases. No rhonchi or crackles. ABDOMEN: Soft, distended, diffuse tenderness. No guarding. no masses palpable. No ascites, Bowel sounds heard. LEGS: No edema. no swelling NERVOUS SYSTEM: Cranial N 2-12 grossly normal. No focal deficits. Strength and sensation grossly intact.. Skin: Warm and dry, no rash Results CBC & Chem 7: 07/10/23 15:19 07/10/23 15:19 Labs: Abnormal Lab Results - Last 24 Hours (Table) 07/10/23 07/10/23 07/10/23 Range/Units 15:19 15:19 15:19 WBC 11.7 H (3.8-10.6) k/uL Neutrophils # 9.3 H (1.3-7.7) k/uL Eosinophils # 0.8 H (0-0.7) k/uL PT 12.7 H (10.0-12.5) sec INR 1.2 H (<1.2) ALT (4-49) U/L Total Protein (6.3-8.2) g/dL Amylase (30-110) U/L Lipase (23-300) U/L Urine Ketones 1+ H (Negative) 07/10/23 Range/Units 15:19 WBC (3.8-10.6) k/uL Neutrophils # (1.3-7.7) k/uL Eosinophils # (0-0.7) k/uL PT (10.0-12.5) sec INR (<1.2) ALT 66 H (4-49) U/L Total Protein 6.0 L (6.3-8.2) g/dL Amylase 170 H (30-110) U/L Lipase 2840 H (23-300) U/L Urine Ketones (Negative) Assessment and Plan Assessment: Acute pancreatitis, no gallstones reported per ultrasound Obesity, BMI 28 Primary history of heavy alcohol use 12-15 years ago Hyperlipidemia Sleep apnea uses CPAP Marijuana use Plan: Continue on current medication regime ,monitoring and symptomatic treatment. Maintain IV fluid hydration. Bowel rest/NPO. Pain management. G eneral surgery consult in place with recommendations pending. The impression and plan of care has been dictated as directed. : I performed a history and examination of this patient, discussed the same with the dictator. I agree with the dictator's note ,documented as a scribe. Any additional findings or plans will be noted.
[2023-07-11 15:04] LABS: ALT 50 U/L (10-49); AST 27 U/L (14-35); Albumin 3.8 g/dL (3.8-4.9); Albumin/Globulin Ratio 2.24 Ratio (1.60-3.17); Alkaline Phosphatase 93 U/L (41-126); Blood Urea Nitrogen 8.9 mg/dL (9.0-27.0); Calcium 9.1 mg/dL (8.7-10.3); Chloride 108 mmol/L (96-109); Globulin 1.7 g/dL (1.6-3.3); Glucose 84 mg/dL (70-110); Lipase 35 U/L (14-60); Magnesium 1.7 mg/dL (1.5-2.4); Phosphorus 3.1 mg/dL (2.4-5.1); Sodium 144 mmol/L (135-145); Total Bilirubin 0.9 mg/dL (0.3-1.2); Total Protein 5.5 g/dL (6.2-8.2)
[2023-07-11 15:05] LABS: Basophils # (A) 0.09 X 10*3/uL (0.00-0.10); Basophils % (A) 1.2 %; Eosinophils # (A) 1.86 X 10*3/uL (0.04-0.35); Eosinophils % (A) 24.1 %; HCT 46.5 % (39.6-50.0); HGB 15.4 g/dL (13.0-17.0); Lymphocytes # (A) 2.37 X 10*3/uL (0.90-5.00); Lymphocytes % (A) 30.7 %; MCH 28.3 pg (27.0-32.0); MCHC 33.1 g/dL (32.0-37.0); MCV 85.3 FL (80.0-97.0); Mean Platelet Volume 10.6 FL (9.5-12.2); Monocytes # (A) 0.52 X 10*3/uL (0.20-1.00); Monocytes % (A) 6.7 %; NRBC Per 100 WBC 0 X 10*3/uL (0.00-0.01); Neutrophils # (A) 2.85 X 10*3/uL (1.80-7.70); Neutrophils % (A) 36.9 %; Platelet Count 256 X 10*3/uL (140-440); RBC 5.45 X 10*6/uL (4.40-5.60); RDW 12.5 % (11.5-14.5); WBC 7.72 X 10*3/uL (4.50-10.00)
[2023-07-11] MEDS: ESCITALOPRAM 10 MG TAB PO SCH (20:58)
[2023-07-12] MEDS: SODIUM CHLORIDE 0.9% 1,000 ML IV SCH (02:17)
[2023-07-12 08:41] VITALS: BP 125/70; PULSE 74; TEMP 98.3
[2023-07-12] MEDS: PANTOPRAZOLE 40 MG/10 ML VIAL IV SCH (09:02)
[2023-07-12 10:12] LABS: Basophils # (A) 0.08 X 10*3/uL (0.00-0.10); Basophils % (A) 1.1 %; Eosinophils # (A) 1.65 X 10*3/uL (0.04-0.35); Eosinophils % (A) 22.4 %; HCT 42.5 % (39.6-50.0); Lymphocytes # (A) 2.13 X 10*3/uL (0.90-5.00); Lymphocytes % (A) 28.9 %; MCH 28.2 pg (27.0-32.0); MCHC 32.9 g/dL (32.0-37.0); MCV 85.7 FL (80.0-97.0); Mean Platelet Volume 10.2 FL (9.5-12.2); Monocytes # (A) 0.56 X 10*3/uL (0.20-1.00); Monocytes % (A) 7.6 %; NRBC Per 100 WBC 0 X 10*3/uL (0.00-0.01); Neutrophils # (A) 2.93 X 10*3/uL (1.80-7.70); Neutrophils % (A) 39.6 %; Platelet Count 239 X 10*3/uL (140-440); RBC 4.96 X 10*6/uL (4.40-5.60); RDW 12.3 % (11.5-14.5); WBC 7.38 X 10*3/uL (4.50-10.00)
[2023-07-12 11:00] LABS: ALT 36 U/L (10-49); AST 20 U/L (14-35); Albumin 3.4 g/dL (3.8-4.9); Albumin/Globulin Ratio 2.27 Ratio (1.60-3.17); Alkaline Phosphatase 83 U/L (41-126); BUN/Creat Ratio 12.67 Ratio (12.00-20.00); Blood Urea Nitrogen 11.4 mg/dL (9.0-27.0); Calcium 8.7 mg/dL (8.7-10.3); Carbon Dioxide 19.7 mmol/L (21.6-31.8); Chloride 108 mmol/L (96-109); Globulin 1.5 g/dL (1.6-3.3); Glucose 64 mg/dL (70-110); Lipase 20 U/L (14-60); Potassium 4.6 mmol/L (3.5-5.5); Sodium 141 mmol/L (135-145); Total Protein 4.9 g/dL (6.2-8.2)
--- NOTE | 2023-07-12 12:09 | P.PN ---
Subjective Progress Note Date: 07/12/23 CHIEF COMPLAINT: Pancreatitis HISTORY OF PRESENT ILLNESS: Patient reports abdominal pain has resolved. Denies any nausea or vomiting. Tolerating clear liquid diet. Afebrile. WBC 7.38 total bili 1.0 AST 20 ALT 36 lipase normal at 20 PHYSICAL EXAM: VITAL SIGNS: Reviewed. GENERAL: Well-developed in no acute distress. HEENT: No sclera icterus. Extraocular movements grossly intact. Moist buccal mucosa. Head is atraumatic, normocephalic. ABDOMEN: Soft. Nondistended. Nontender. NEUROLOGIC: Alert and oriented. Cranial nerves II through XII grossly intact. ASSESSMENT: 1. Acute pancreatitis. Improved. No evidence of gallstones on ultrasound 2. Prior history of heavy alcohol use PLAN: -Advance diet to full liquids and then as tolerated over the next couple of days -Patient can be discharged from surgical standpoint if tolerating full liquids -Educated patient on abstaining from alcohol Physician [employer] note has been reviewed by physician. Signing provider agrees with the documented findings, assessment, and plan of care. Objective - Vital Signs Vital signs: Vital Signs Temp 98.3 F 07/12/23 07:00 Pulse 74 07/12/23 07:00 Resp 16 07/12/23 07:00 BP 125/70 07/12/23 07:00 Pulse Ox 98 07/12/23 07:00 FiO2 Intake & Output 07/11/23 07/12/23 07/12/23 18:59 06:59 18:59 Output Total 5 Balance -5 Output: Emesis 5 Other: # Voids 2 1 - Labs CBC & Chem 7: 07/12/23 05:51 07/12/23 05:51 Labs: Abnormal Lab Results - Last 24 Hours (Table) 07/11/23 07/11/23 Range/Units 08:17 08:17 Eosinophils # 1.86 H (0.04-0.35) X 10*3/uL BUN 8.9 L (9.0-27.0) mg/dL BUN/Creatinine Ratio 8.90 L (12.00-20.00) Ratio ALT 50 H (10-49) U/L Total Protein 5.5 L (6.2-8.2) g/dL
--- NOTE | 2023-07-12 13:12 | P.DS ---
Providers Date of admission: 07/10/23 18:32 Expected date of discharge: 07/12/23 Attending physician: Toby Dill MD Final Diagnoses: Acute pancreatitis, no gallstones reported per ultrasound Obesity, BMI 28 Primary history of heavy alcohol use 12-15 years ago Hyperlipidemia Sleep apnea uses CPAP Marijuana use Hospital course:This is a 38-year-old gentleman with past medical history significant for IBS, heavy alcohol use 12-15 years ago, hyperlipidemia, obstru ctive sleep apnea- uses CPAP, marijuana use, and multiple other medical issues presented to the ER with worsening abdominal pain. He reports he initially started not feeling well before [place], developed change in stools, now more liquidy, abdominal pain with eating. Over the last 2 weeks abdominal pain worsened. Reports 3-4 times nausea and vomiting. Denies prior history of pancreatitis. He reports he does not consume alcohol on a regular basis. He tended have a glass of wine on [place]. 2007 had a colonoscopy reporting polyps. Last week he went to [facility] ER, CT and blood work obtained and reports he received a diagnosis of gastritis. Gallbladder ultrasound reported pancreas obscured by bowel gas, no sonographic abnormality of the gallbladder biliary tree, no stones or wall thickening. Lipase elevated 2840 on admission. Afebrile, WBC 11.7, hemoglobin 15.5, platelets 207, INR 1.2, electrolytes and renal function within normal limits, T bili 0.8 AST 47 ,ALT 66 ,alk phos 89. UA negative. Lipase normalized, 20. Tolerating clear liquid diet, denies any further abdominal pain. Denies nausea or vomiting. denies chest pain, palpitations or shortness of breath. Afebrile, normal WBC. Significant clinical improvement. Tolerated diet advancement to full liquids and cleared by general surgery. Patient will be discharged home today in a stable condition with guarded prognosis. The impression and plan of care has been dictated as directed. : I performed a history and examination of this patient, discussed the same with the dictator. I agree with the dictator's note ,documented as a scribe. Any additional findings or plans will be noted. Consults: 07/10/23 18:32 Consult Physician Routine Consulting Provider: Thompson Muniz Consult Reason/Comments: pancreatis Do you want consulting provider notified?: Yes Primary care physician: Sherice Pardo Plan - Discharge Summary New Discharge Prescriptions: Continue Escitalopram Oxalate [Lexapro] 10 mg PO HS Discharge Medication List Escitalopram Oxalate [Lexapro] 10 mg PO HS 11/26/22 [History] Follow up Appointment(s)/Referral(s): Toby Dill MD [STAFF PHYSICIAN] - 1 Week
== END 2023-07-12 13:35 | disposition home or self-care (01) | DRG 440 ==
LOC: EC 14:45 → 6NMEDSUR 18:32
PROVIDERS: ADMIT Family Medicine; ATTEND Family Medicine
DX: K85.90 Acute pancreatitis without necrosis or infection, unspecified (principal); E66.9 Obesity, unspecified; F10.11 Alcohol abuse, in remission; Z28.310 Unvaccinated for COVID-19; K29.70 Gastritis, unspecified, without bleeding; G47.33 Obstructive sleep apnea (adult) (pediatric); E78.5 Hyperlipidemia, unspecified; F12.90 Cannabis use, unspecified, uncomplicated; F43.10 Post-traumatic stress disorder, unspecified; K58.9 Irritable bowel syndrome, unspecified; L65.9 Nonscarring hair loss, unspecified; Z68.28 Body mass index [BMI] 28.0-28.9, adult; Z79.899 Other long term (current) drug therapy; Z88.1 Allergy status to other antibiotic agents
CPT/HCPCS: 36415; 76705; 80053; 81003; 82150; 83605; 83690; 83735; 84100; 85025; 85610; 85730; 96361; 96374; 96375; 96376; 99285

== ENCOUNTER → 2023-08-30 | Outpatient (CLI) | payer MEDICARE, OTHER ==
[2023-08-30 18:24] LABS: Gliadin AB IgA, Deaminated Negative (Negative); Gliadin AB IgA, Unit <0.5 U/mL; Gliadin AB IgG, Deaminated Negative (Negative); Gliadin AB IgG, Unit <0.4 U/mL
== END | disposition home or self-care (01) ==
LOC: LABWHC1 08:38
PROVIDERS: ATTEND Internal Medicine Gastroenterology
DX: K52.9 Noninfective gastroenteritis and colitis, unspecified (principal)
CPT/HCPCS: 36415; 83516

== ENCOUNTER → 2023-11-01 | Day surgery (SDC) | payer MEDICARE, OTHER ==
[2023-10-25 11:24] VITALS: BMI 25.9
[~2023-11-01] MED LIST: LIDOCAINE 1% (10MG/ML) FOR IV START INTRADERMA PRN; PROPOFOL 10 MG/ML 20 ML VIAL IV ONE
[2023-11-01] MEDS: LACTATED RINGERS 1,000 ML IV SCH (09:14)
[2023-11-01 09:15] VITALS: TEMP 98.2
--- NOTE | 2023-11-01 10:03 | P.PCN ---
Date of Procedure: 11/01/23 Procedure(s) Performed: BRIEF HISTORY: Patient is a 38-year-old pleasant white male scheduled for an elective colonoscopy as a part of evaluation of change in bowel habits for the last 1 year duration. PROCEDURE PERFORMED: Colonoscopy. PREOPERATIVE DIAGNOSIS: Change in bowel habits. IV sedation per Anesthesia. PROCEDURE: After informed consent was obtained, the patient, was brought into the endoscopy unit. IV sedation was administered by Anesthesia under continuous monitoring. Digital rectal examination was normal. Initially the Olympus CF-160 flexible video colonoscope was then inserted in the rectum, gradually advanced into the cecum without any difficulty. Careful examination was performed as the scope was gradually being withdrawn. Ileocecal valve and the appendiceal orifice were visualized and appeared normal. Prep was excellent. Mucosa of the cecum, ascending colon, transverse colon, descending colon, sigmoid colon, and rectum appeared normal. Retroflexion was performed in the rectum and no lesions were seen. The patient tolerated the procedure well. IMPRESSION: Normal-appearing colon from rectum to cecum no evidence of colorectal neoplasia. RECOMMENDATIONS: Findings of this examination were discussed with the patient as well as his family. He was advised to have repeat screening colonoscopy in 10 years.
[2023-11-01 10:19] VITALS: RESP 14
[2023-11-01 11:15] VITALS: BP 104/75; PULSE 55
== END ==
LOC: ORWHC2ENDO 08:35
PROVIDERS: ATTEND Internal Medicine Gastroenterology
DX: R19.4 Change in bowel habit (principal); F41.9 Anxiety disorder, unspecified; F32.A Depression, unspecified; F43.10 Post-traumatic stress disorder, unspecified; G47.33 Obstructive sleep apnea (adult) (pediatric); K58.9 Irritable bowel syndrome, unspecified; F12.90 Cannabis use, unspecified, uncomplicated; F17.200 Nicotine dependence, unspecified, uncomplicated; Z79.899 Other long term (current) drug therapy; Z87.19 Personal history of other diseases of the digestive system; Z88.1 Allergy status to other antibiotic agents; Z98.890 Other specified postprocedural states
CPT/HCPCS: 45378; J2704

== ENCOUNTER → 2024-01-13 | Outpatient (CLI) | payer MEDICARE, OTHER ==
--- NOTE | 2024-01-13 15:52 | US ---
EXAMINATION TYPE: US kidneys/renal and bladder DATE OF EXAM: 01/13/2024 COMPARISON: 07/10/2023 CLINICAL INDICATION: Male, 38 years old with history of R10.9 UNSPECIFIED ABDOMINAL PAIN; Left flank pain since x 7 months with nausea; Hx of pancreatitis EXAM MEASUREMENTS: Right Kidney: 11.6 x 5.3 x 4.9 cm Left Kidney: 10.7 x 5.2 x 5.8 Post Void Residual Volume: NAmL Right Kidney: WNL Left Kidney: WNL Bladder: WNL Bilateral Jets seen: Yes Normal Post Void Residual: NA There is no evidence for hydronephrosis at this point in time. Corticomedullary differentiation is m aintained bilaterally. No nephrolithiasis is seen. No masses are identified. The urinary bladder is anechoic. Bilateral ureteral jets are seen. IMPRESSION: No hydronephrosis or nephrolithiasis.
== END | disposition home or self-care (01) ==
LOC: RADUSWWP 15:16
PROVIDERS: ATTEND Urology
DX: R10.9 Unspecified abdominal pain (principal)
CPT/HCPCS: 76770